=== PATIENT | female | born 1965 | race African-American/Black ===

== ENCOUNTER 2020-03-18 22:01 | Emergency (ER) | payer MEDICAID, MEDICARE ==
[~2020-03-18] VITALS: Ht 154.9 cm; Wt 72.6 kg
[~2020-03-18 22:01] MED LIST: ACET-7604; ALBU0.0965 INH; ALPR2TAB1; AMLO5TAB1; ASPI-1821; CARB100C79; CYAN500L SL; DIPH50CA8; HALO5TAB21; HYDR25TA32; IPRA0.02 INH; NITR1PAT SL; OXYC60TE; [UNRECOGNIZED DRUG - CODE]
--- NOTE | 2020-03-18 22:06 | NUR ---
FRANCA THURMAN TO ER CHAIR C
[2020-03-18 22:08] VITALS: BP 106/70
--- NOTE | 2020-03-18 22:50 | NUR ---
55 Y/O FEMALE BIBA FOR ALS PRESENTED TO ED C/O CHEST PAIN X 3 HOURS. PT STATES IT IS SUBSTERNAL CHESTPAIN RADATING TO R ARM. 0.8 PO NITRO AND 324MG OF ASA GIVEN BY EMS PIROR TO ARRIVAL. PAIN DECREASED FROM 10/10 TO 8/10 PAIN. PT DENIES N/V/FEVER/BODY ACHES , PT + RING . PT STATES SHE USUALLY TAKES PERCOCET FOR PAIN BUT HAS NOT TAKEN ANY TODAY. PT RR EVEN AND UNLABORED, SAO2 99%. PT RESTING IN BED, LOCKED AND IN LOWEST POSITION, HOB ELEVATED, SIDE RAIL X1 , RR EVEN AND UNLABORED, VSS. PT CONNECTED TO [employer]GER, PULSE OX AND BP CUFF. PMH: ARRYTHMIAS, CVA ( LAST ONE A COUPLE OF MONTHS AGO - WEAKNESS DEFICITS ONLY), AX: CEPHALEXIN
--- NOTE | 2020-03-18 22:50 | NUR ---
PT TO BED 2 VIA ROSENDA.
--- NOTE | 2020-03-18 23:15 | NUR ---
PER ERMD DO NOT NEED TO DO A 2ND EKG FOR PT
--- NOTE | 2020-03-18 23:33 | NUR ---
Karla brian in [facility] - 03/18/20 at 2336 by GILL PER PT SHE ALSO HAS A HX OF GALL STONES
--- NOTE | 2020-03-18 23:36 | NUR ---
PT C/O PASSING KIDNEY STONES , RATES PAIN 10/10.
[2020-03-18 23:37] LABS: BASOPHILS # (AUTO) 0.1 K/uL (0.00-0.22); BASOPHILS % (AUTO) 0.7 % (0.0-2.0); EOSINOPHILS # (AUTO) 0.3 K/uL (0-0.4); EOSINOPHILS % (AUTO) 3.1 % (0.0-4.0); HEMATOCRIT 35.1 % (36-48); HEMOGLOBIN 11.7 g/dL (12.0-16.0); LYMPHOCYTES # (AUTO) 2.9 K/uL (2.5-16.5); LYMPHOCYTES % (AUTO) 31.9 % (20.5-51.1); MEAN CORPUSCULAR HEMOGLOBIN 26 pg (27-31); MEAN CORPUSCULAR HGB CONC 33 g/dL (33-37); MONOCYTES # (AUTO) 0.6 K/uL (0.8-1.0); MONOCYTES % (AUTO) 6.9 % (1.7-9.3); NEUTROPHILS # (AUTO) 5.3 K/uL (1.8-7.7); NEUTROPHILS % (AUTO) 57.4 % (42.2-75.2); PLATELET COUNT (AUTO) 309 K/uL (140-450); RED BLOOD CELL COUNT(AUTO) 4.56 MIL/uL (4.20-5.40); RED CELL DISTRIBUTION WIDTH 19.3 % (11.6-13.7); WHITE BLOOD COUNT (AUTO) 9.2 K/uL (4.8-10.8)
--- NOTE | 2020-03-18 23:37 | NUR ---
TARIKD MADE AWARE OF PT PAIN 06/11
[2020-03-18] MEDS ORDERED: MORPHINE SULFATE 4 MG/ML SYR IVP ONE (23:40)
[2020-03-18 23:49] LABS: ALBUMIN 3.9 g/dL (3.4-5.0); ANION GAP 14.7 (8-16); CARBON DIOXIDE 28.3 mmol/L (21-32); CREATININE 1.1 mg/dL (0.6-1.3); TOTAL BILIRUBIN 0.3 mg/dL (0.0-1.0)
[2020-03-18] MEDS ORDERED: ONDANSETRON 4 MG/2 ML VIAL IVP ONE (23:50)
--- NOTE | 2020-03-19 00:12 | NUR ---
XRAY AT BEDSIDE
[2020-03-19] MEDS ORDERED: MORPHINE SULFATE 4 MG/ML SYR IVP ONE ×2 (01:05→02:05)
--- NOTE | 2020-03-19 01:20 | NUR ---
COVERING PRIMARY RN FOR LUNCH RELIEF -- MEDICATED ORDERED FOR PAIN. WILL CONTINUE TO ASSESS.
--- NOTE | 2020-03-19 02:11 | NUR ---
PT TAKEN TO CT VIA CRIS
--- NOTE | 2020-03-19 02:42 | NUR ---
PT RESTING IN BED, LOCKED AND IN LOWEST POSITION ,HOB ELEVATED, SIDE RAIL X2 FOR PT SAFETY. VISIBLE RISE AND FALL OF CHEST, RR EVEN AND UNLABORED, VSS.
--- NOTE | 2020-03-19 03:27 | NUR ---
ERMD AT BEDSIDE FOR RE EVALUATION
--- NOTE | 2020-03-19 04:25 | NUR ---
PT PROVIDED [employer]OUCHER FOR TRANSPORTATION HOME.
[2020-03-19 04:30] VITALS: BP 108/71
--- NOTE | 2020-03-19 04:30 | NUR ---
Patient discharged with v/s stable. Written and verbal after care instructions given and explained. Patient verbalized understanding. Ambulatory with steady gait. All questions addressed prior to discharge. Advised to follow up with PMD.
== END 2020-03-19 04:30 | disposition home or self-care (01) ==
LOC: MED 22:01
DX: R07.9 Chest pain, unspecified (principal); R10.9 Unspecified abdominal pain; I51.9 Heart disease, unspecified; E11.9 Type 2 diabetes mellitus without complications; J44.9 Chronic obstructive pulmonary disease, unspecified; Z86.73 Personal history of transient ischemic attack (TIA), and cerebral infarction without residual deficits; Z88.1 Allergy status to other antibiotic agents; Z79.899 Other long term (current) drug therapy; Z79.82 Long term (current) use of aspirin
CPT/HCPCS: 36415; 71045; 74018; 74176; 80053; 83690; 83880; 84484; 85025; 93005; 96374; 96375; 96376; 99285; J2270; J2405; Q0092